=== PATIENT | male | born 1945 | race Caucasian/White ===

== ENCOUNTER 2024-10-26 10:29 | Emergency (ER) | payer MEDICARE ==
[2024-10-26] VITALS (15 sets, daily range): BP systolic 78–158; BP diastolic 44–91
[~2024-10-26] VITALS: Ht 172.7 cm; Wt 89.8 kg
[~2024-10-26 10:29] MED LIST: BISOPRL/HCT1 OR; BP MED; CO-ENZYME Q10100 MG PO; FISH OIL MAXI1200 M1 PO; FLUARIX QUADRIV1 INJ IM; LOVASTATIN10 M1 PO; LUTEIN1 CAP PO; MULTIVITAMIN ME1 TAB PO; OCUVIT1 PO; TRICOR48 MG PO; [UNRECOGNIZED DRUG - OTHER] PO
[2024-10-26] MEDS ORDERED: LIDOcaine HCl 1% (Local Anesth.) 20 ML VIAL STI STA (10:39)
[2024-10-26] MEDS ORDERED: POVIDONE IODINE 0.5 OZ/BTL TOP ONE (10:40)
[2024-10-26] MEDS ORDERED: NEOMYCIN-BACITRACIN-POLYMYXIN 0.5 GM/PAK PAK TOP ONE (10:40)
[2024-10-26] MEDS ORDERED: KEFLEX500 MG PO (13:40)
== END 2024-10-26 13:59 | disposition home or self-care (01) ==
LOC: ED 10:29
PROC: 0HQNXZZ Repair Left Foot Skin, External Approach (ICD-10-PCS; principal; 2024-10-26)
DX: S91.112A Laceration without foreign body of left great toe without damage to nail, initial encounter (principal); I10 Essential (primary) hypertension; W27.0XXA Contact with workbench tool, initial encounter; Y93.89 Activity, other specified; Z95.1 Presence of aortocoronary bypass graft